=== PATIENT | male | born 2000 | race Caucasian/White ===

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

== ENCOUNTER 2024-07-10 09:18 | Emergency (ER) | payer SELFPAY ==
[~2024-07-10] VITALS: Ht 180.3 cm; Wt 61.2 kg
[2024-07-10 09:26] VITALS: PULSE 77; RESP 12; TEMP 97.5
[2024-07-10] MEDS: METOCLOPRAMIDE HCL 10 MG/2ML VIAL IV ONE (09:45)
[2024-07-10] MEDS: DIPHENHYDRAMINE HCL INJ 50 MG/ML VIAL IV STA (09:45)
[2024-07-10] MEDS: KETOROLAC TROMETHAMINE 30 MG/ML VIAL IV STA (09:46)
[2024-07-10] MEDS: SODIUM CHLORIDE 0.9% 1000ML 1,000 ML IV SCH (09:46)
[2024-07-10 11:24] VITALS: BP 112/68; PULSE 62; RESP 16; TEMP 98; O2SAT 99
== END 2024-07-10 11:26 | disposition home or self-care (01) ==
LOC: ER 09:20
DX: R51.9 Headache, unspecified (principal)
CPT/HCPCS: 70450; 99283; J1200; J1885; J2765; J7030